=== PATIENT | male | born 1940 | race Caucasian/White ===

== ENCOUNTER → 2016-07-30 | Outpatient (CLI) | payer OTHER, MEDICARE ==
[~2016-07-30] MED LIST: ACCUNEB0.63 MG/3 INH; ALBUTEROL2.5 MG/3 M INH; ALDACTONE25 MG PO; ALLOPURINOL 10100 M1 PO; ALLOPURINOL 30300 M2 PO; ASPIRIN EC81 M1 PO; ATENOLOL 25 MG25 M1 PO; ATENOLOL 50MG T50 M1 PO; AVELOX 400 MG400 MG; AVELOX 400 MG400 MG PO; AZOR 10-40 MG1 EACH PO; B12INJ IJ; BENICAR 5 MG5 M1 PO; BENICAR20 MG PO; BENICAR40 MG PO; BYSTOLIC 5 MG5 M1 PO; BYSTOLIC10 MG PO; CARDIZEM CD180 MG PO; CARTIA XT120 M1 PO; CIPROFLOXACIN500 M3 PO; COLACE100 MG PO; COREG3.125 MG PO; COREG6.25 MG PO; COUMADIN 1MG TAB1 M1 PO; COUMADIN 2.5MG2.5 M1; COUMADIN 2.5MG2.5 M1 PO; COUMADIN 5 MG TA5 M1 PO; CRESTOR20 MG PO; CRESTOR40 MG PO; DIABETA 5MG TABL5 MG PO; DIFLUCAN; FAMCICLOVIR500 MG PO; FAMVIR125 MG PO; FLOMAX PO; FOLIC ACID1 MG PO; FUROSEMIDE 40 M40 M1 PO; GLUCOSE 40% GEL15 GM; GLUCOSE4 GM PO; GLUCOTROL XL2.5 MG PO; GLYBURIDE 5 MG T5 M1 PO; GLYCOLAX POWDER17 G1 PO; HYDROCODON-ACE1 EAC8 PO; KEFLEX250 MG PO; LANOXIN 0.120.125 M1 PO; LASIX 40 MG TAB40 M1 PO; MAG-OX 400 TAB400 M1 PO; MEDROLDOSEPACK PO; MEGESTROL40 MG/1 M1 PO; MUCINEX600 MG PO; MULTIVITAMINS; NORCO 5-325 TA1 EACH PO; NOVOLOG100 UNIT/1; NOVOLOG100 UNIT/1 SC; NYSTATIN 1100000 U/M PO; PACERONE 200 M200 M1 PO; PLAVIX 75 MG TA75 MG PO; POTASSIUM20 PO; PREDNISONE 10 M10 M1 PO; PREPARATION H O30 GM; PRILOSEC 20 MG20 MG PO; PROBIOTIC1 EAC1 PO; PROTONIX 20 MG20 M1 PO; PROTONIX40 M2 PO; ROBITUSSIN CF PO; TAMSULOSIN HCL0.4 MG PO; VANCOMYCIN100 MG/ML PO; VENTOLIN HFA 1818 GM; VICODIN 5-5001 EACH PO; VITAMIN B-12100 MC1; VOLTAREN GEL 1100 G2 TOP; XOPENEX0.63 MG/3
== END ==
LOC: RAD 10:16
DX: N18.9 Chronic kidney disease, unspecified (principal); R06.00 Dyspnea, unspecified; I42.9 Cardiomyopathy, unspecified

== ENCOUNTER → 2016-08-01 | Outpatient (CLI) | payer OTHER, MEDICARE | LOC: CAT 10:43 | DX: J84.10 Pulmonary fibrosis, unspecified (principal); J47.9 Bronchiectasis, uncomplicated; J90 Pleural effusion, not elsewhere classified; R59.0 Localized enlarged lymph nodes ==

== ENCOUNTER → 2016-09-06 | Outpatient (CLI) | payer OTHER, MEDICARE | LOC: RAD 08:45 | DX: J47.9 Bronchiectasis, uncomplicated (principal); J90 Pleural effusion, not elsewhere classified ==

== ENCOUNTER → 2016-09-12 | Outpatient (CLI) | payer OTHER, MEDICARE | LOC: RAD 11:48 | DX: R06.02 Shortness of breath (principal) ==

== ENCOUNTER 2016-10-08 12:20 | Inpatient (IN) | payer OTHER, MEDICARE ==
[~2016-10-08] VITALS: Ht 182.9 cm; Wt 72.4 kg
--- NOTE | ~2016-10-08 | H ---
[facility] [place] [address] HISTORY AND PHYSICAL Name: JEREMY GABRIEL Rehana Room #: 212-P ADM IN .R.#: [id number] Admission: 10/08/16 Attend Phys: Isiah Kilgore MD, Discharge: Date of : 38 Report #: [id number] THIS REPORT FOR: //name// CC: Fabrizio Kilgore DATE OF SERVICE: 10/08/2016 HISTORY OF PRESENT ILLNESS: The patient is a 75-year-old male well known to myself who was admitted today for some rectal bleeding, an INR of greater than 12 and some progressive heart failure, shortness of breath and dyspnea. Small bilateral pleural effusions are noted. He is becoming more progressively short of breath, though he is chronically short of breath. This is acute on chronic systolic failure in addition to coagulation issue due to INR elevation and warfarin. He was fairly well compensated when I last saw him 3 months ago. He is on warfarin, baby aspirin, albuterol, Aldactone 25 b.i.d., ____, and Lasix 40. His laboratory work reveals sodium of 134, potassium of 4.9, BUN of 50, and creatinine of 2.7. Liver function tests were normal. Albumin was 3.6. Troponin is 0.05, proBNP is 23,000, and INR is 12.5. His H and H are 14 and 44, the white count is 12,000 and platelets 193. PAST MEDICAL HISTORY: Positive for ischemic cardiomyopathy, coronary artery disease, bypass, bare metal stents to SVG to the RCA, last cath in 2007, nuclear tests negative in the last year. 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 SOCIAL HISTORY: He is . No current alcohol or tobacco. He is retired. No illicit drugs. He was never a smoker. Moderate caffeine. ALLERGIES: PENICILLIN and RAVEN INHIBITORS. REVIEW OF SYSTEMS: Essentially negative except for the progressive dyspnea, shortness of breath, and some small amount of rectal bleeding. PHYSICAL EXAMINATION: GENERAL: He is mildly dyspneic, but in no distress. He is alert and oriented. VITAL SIGNS: Blood pressure 116/60 and pulse is 70s. HEENT: Eyes reveal xanthelasmas. Pharynx is clear. NECK: Shows slight diminished upstrokes with JVD mildly noted. LUNGS: Clear with bibasilar crackles, prolonged expiratory phase, diminished in the bases. CARDIAC: Regular rate and rhythm. S1, S2. There is a holosystolic murmur. ABDOMEN: Soft. No HSM or abdominal bruit. EXTREMITIES: Reveal trace to 1+ edema. Distal pulses diminished, but intact. [facility] [address] [place] [address] HISTORY AND PHYSICAL Name: JEREMY GABRIEL Rehana Room #: 212-P [facility] IN M.R.#: [id number] Admission: 10/08/16 Attend Phys: Isiah Kilgore MD, Discharge: Date of : 38 Report #: [id number] NEUROLOGIC: Nonfocal. SKIN: Warm and dry without xanthoma or ulcer. MUSCULOSKELETAL: Generalized arthritic changes, slow gait. ASSESSMENT: 1. Acute systolic failure on chronic. 2. Moderately severe ischemic cardiomyopathy. 3. Bleeding secondary to elevated INR, iatrogenic secondary warfarin usage. 4. Atrial fibrillation flutter. 5. Sick sinus syndrome with permanent pacemaker. 6. Coronary artery disease with prior coronary artery bypass grafting. 7. Sleep apnea. 8. History of carotid stent. RECOMMENDATIONS AND PLAN: Vitamin K. Liver function tests appear to be appropriate. I am not clear as to what interacted here with his INR. We will monitor his H and H, repeat the INR in the morning and may need additional vitamin K. We will give 10 p.o. of Lasix bolus and drip has been initiated. There is moderate volume overload, particularly noted with a BNP of 24,000. Pulmonary toilet is needed. We will restart Aldactone, holding aspirin, warfarin, and albuterol. We will follow. By: 2316 Isiah Kilgore MD, [facility] /nt
[2016-10-08 14:01] LABS: HEMATOCRIT 44.5 % (42.0-52.0); HEMOGLOBIN 14.6 gm/dL (14.0-18.0); MCH 31.7 pg (26.0-34.0); MCHC 32.8 g/dL (28.0-37.0); MCV 96.7 fL (80.0-100.0); RBC 4.6 mil/uL (4.50-6.00); RDW 15.8 % (10.5-14.5); WBC 12.2 thou/uL (4.0-11.0)
[2016-10-08 14:34] VITALS: BP 137/69
[2016-10-08 14:42] LABS: PROTIME 130.2 Seconds (9.3-11.4)
[2016-10-08 14:45] LABS: ALBUMIN 3.6 g/dL (3.4-5.0); CALCIUM 9.9 mg/dL (8.5-10.1); CREATININE 2.7 mg/dL (0.7-1.3); POTASSIUM 4.9 mmol/L (3.5-5.1); TOTAL BILIRUBIN 0.7 mg/dL (<0.1-1.0); TOTAL PROTEIN 8.1 g/dL (6.4-8.2); TROPONIN-I 0.05 ng/mL (<0.04-0.07)
[2016-10-08 14:49] LABS: INR 12.5
[2016-10-08] MEDS ORDERED: LOPERAMIDE 2 MG2 M1 PO (14:53)
[2016-10-08 16:54] VITALS: BP 105/68
[2016-10-08 19:57] VITALS: BP 116/58
[2016-10-08 23:16] VITALS: BP 95/62
[2016-10-09 03:31] VITALS: BP 112/63
[2016-10-09 04:38] LABS: PROTIME 29.5 Seconds (9.3-11.4)
[2016-10-09 04:41] LABS: INR 2.8
[2016-10-09 07:28] LABS: CALCIUM 9.4 mg/dL (8.5-10.1); CREATININE 2.6 mg/dL (0.7-1.3); POTASSIUM 4.5 mmol/L (3.5-5.1)
[2016-10-09 08:34] VITALS: BP 125/64
[2016-10-09 12:04] VITALS: BP 116/79
[2016-10-09 15:45] VITALS: BP 116/79
[2016-10-09 19:43] VITALS: BP 122/73
[2016-10-10 03:39] LABS: INR 1.4; PROTIME 14.1 Seconds (9.3-11.4)
[2016-10-10 03:41] LABS: CALCIUM 9.1 mg/dL (8.5-10.1); CREATININE 2.8 mg/dL (0.7-1.3); POTASSIUM 4.1 mmol/L (3.5-5.1)
[2016-10-10 04:01] LABS: HEMATOCRIT 41.5 % (42.0-52.0); HEMOGLOBIN 13.7 gm/dL (14.0-18.0); MCH 31.6 pg (26.0-34.0); MCV 95.8 fL (80.0-100.0); RBC 4.34 mil/uL (4.50-6.00); RDW 15.5 % (10.5-14.5); WBC 10.2 thou/uL (4.0-11.0)
[2016-10-10 07:30] VITALS: BP 118/73
[2016-10-10 12:16] VITALS: BP 96/58
[2016-10-10 17:33] VITALS: BP 132/72
[2016-10-10 19:23] VITALS: BP 116/65
[2016-10-11 03:24] LABS: CALCIUM 9.1 mg/dL (8.5-10.1)
[2016-10-11 03:40] VITALS: BP 107/70
[2016-10-11] MEDS ORDERED: DEMADEX20 MG PO (07:14)
[2016-10-11 08:00] VITALS: BP 121/74
[2016-10-11 08:37] LABS: INR 1.2; PROTIME 12.5 Seconds (9.3-11.4)
[2016-10-11 12:00] VITALS: BP 115/75
[2016-10-11 13:58] VITALS: BP 115/75
== END 2016-10-11 15:10 | disposition home or self-care (01) | DRG 377 ==
LOC: 2N 12:20
PROVIDERS: Internal Medicine Cardiovascular Disease; Nurse Practitioner Adult Health
DX: K62.5 Hemorrhage of anus and rectum (principal); I50.23 Acute on chronic systolic (congestive) heart failure; N17.9 Acute kidney failure, unspecified; I48.92 Unspecified atrial flutter; E44.0 Moderate protein-calorie malnutrition; I25.5 Ischemic cardiomyopathy; I25.10 Atherosclerotic heart disease of native coronary artery without angina pectoris; G47.30 Sleep apnea, unspecified; I48.91 Unspecified atrial fibrillation; I49.5 Sick sinus syndrome; N18.9 Chronic kidney disease, unspecified; T45.515A Adverse effect of anticoagulants, initial encounter; E11.22 Type 2 diabetes mellitus with diabetic chronic kidney disease; Z68.21 Body mass index [BMI] 21.0-21.9, adult; Z79.01 Long term (current) use of anticoagulants; Z79.82 Long term (current) use of aspirin; Z79.899 Other long term (current) drug therapy; Z95.1 Presence of aortocoronary bypass graft; Z95.5 Presence of coronary angioplasty implant and graft; Z85.72 Personal history of non-Hodgkin lymphomas; Z95.0 Presence of cardiac pacemaker; Z92.21 Personal history of antineoplastic chemotherapy; Z92.3 Personal history of irradiation; Z88.0 Allergy status to penicillin; Z88.8 Allergy status to other drugs, medicaments and biological substances; Y92.89 Other specified places as the place of occurrence of the external cause
CPT/HCPCS: 10797

== ENCOUNTER 2016-11-27 13:14 | Inpatient (IN) | payer OTHER, MEDICARE ==
[~2016-11-27] VITALS: Ht 182.9 cm; Wt 64.6 kg
--- NOTE | ~2016-11-27 | HC ---
[facility] [place] [address] CONSULTATION Name: JEREMY GABRIEL Rehana Room #: 218-P [facility] IN M.R.#: [id number] Admission: 11/27/16 Attend Phys: Isiah Kilgore MD, Discharge: 12/01/16 Date of : 38 Report #: [id number] THIS REPORT FOR: //name// CC: Fabrizio Kilgore DATE OF SERVICE: 11/27/2016 ATTENDING PHYSICIAN: Isiah Kilgore MD. REASON FOR CONSULTATION: Elevated creatinine. HISTORY OF PRESENT ILLNESS: The patient is quite well known to us, followed in the office with CKD stage IV with typical serum creatinine running between 2 and 2.5, now has a creatinine of 2.8. He has chronic progressive shortness of breath, attempts at outpatient increased diuresis have failed to improve him symptomatically, he has had no swelling, watches his salt carefully and shortness of breath has persisted. He has a low left ventricular ejection fraction of 25%, but also high pulmonary artery pressures of 55-60%. PAST MEDICAL HISTORY: The patient has known decreased left ventricular ejection fraction as mentioned above, ischemic coronary artery disease. He has had bypass and bare-metal stents in the past. Also, history of lymphoma treated with chemotherapy 6 years ago, sleep apnea and uses BiPAP at night, a history of diabetes with minor amount of proteinuria, chronic atrial fibrillation with a pacemaker, fifi ablation and defibrillator, I believe. He also has carotid artery disease with left carotid stent by history as well his reports. SOCIAL HISTORY: No cigarettes, no alcohol, lives home with his , use of low-salt diet. REVIEW OF SYSTEMS: GENERAL: He has been feeling poorly. EYES: His vision has gotten worse. He has cataracts. ENT: Hearing okay. He swallows somewhat poorly. When he eats, his reports particularly with drinking liquids that he has aspiration with coughing, his is a nurse. He has left vocal cord paralysis by history as well. ENDOCRINE: He has got the diabetes. RESPIRATORY: Easily shortness of breath with some cough, nonproductive, no hemoptysis. No pleuritic pain. CARDIAC: No swelling in the legs, no chest pain, angina. He has a pacemaker. GASTROINTESTINAL: Very poor appetite, occasional nausea, no vomiting, hematemesis, occasional diarrhea. No bloody stool. GENITOURINARY: Good urinary stream without hematuria. No history of renal stones. NEUROLOGIC: Denies seizure, syncope, stroke or evidence of neuropathy. [facility] [address] [place] [address] CONSULTATION Name: JEREMY GABRIEL Room #: 218-P [facility]#: [id number] Admission: 11/27/16 Attend Phys: Isiah Kilgore MD, Discharge: 12/01/16 Date of : 38 Report #: [id number] MUSCULOSKELETAL: Denies arthritis. ALLERGIES: Reportedly to RAVEN INHIBITORS WITH COUGHING AND TO PENICILLINS. HOME MEDICATIONS: Include aspirin 81 mg daily, Flomax 0.4 mg daily, Coumadin, allopurinol 100 mg daily, spironolactone 25 mg daily, torsemide 40 mg daily and inhalers. FAMILY HISTORY: Positive for cancer and hypertension. PHYSICAL EXAMINATION: GENERAL: This is a chronically ill-appearing, thin, somewhat cachectic elderly gentleman. He is not short of breath at rest. SKIN: Shows some tenting. SKELETAL: Well developed, well nourished, nonobese. HEENT: Extraocular movements are full. Vision grossly intact. No scleral icterus. Hearing intact. Mucous membranes slightly dry. NECK: Veins are flat. CHEST: Shows some rhonchi at the bases, particularly on the left. HEART: Regular. ABDOMEN: Soft and nontender. Liver edge cannot be felt below the right costal margin. EXTREMITIES: Show no peripheral edema. NEUROLOGIC: Grossly intact. LABORATORY DATA: Hemoglobin is 14, platelets 179. Sodium 140, potassium 4.2, chloride 102, bicarbonate 27, creatinine 2.8, BUN 43. ASSESSMENT: 1. Elevated creatinine. He has chronic kidney disease this is multifactorial. He may have slight amount of underlying diabetic nephropathy. He has had some minor amount of proteinuria, this certainly is a large component of cardiorenal disease here with decreased renal perfusion and both right and left-sided heart failure are evident in this patient. I believe if anything he is more on the dry side than the wet side as far as I can tell and shortness of breath may be unrelated to fluid overload. 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 Some of the shortness of breath could be due to a pulmonary lymphadenopathy as well as pleural effusion. The adenopathy may be related to his former or recurrent lymphoma, certainly difficult to tell. He did have a CT of the chest done, which did suggest some adenopathy about a month ago. He also has the pleural effusion and that certainly could be playing a role. He also has atelectasis and may well be aspirating as well and these all could be contributing to his shortness of breath. 2. Ischemic cardiomyopathy with decreased left ventricular ejection fraction. 3. Pulmonary hypertension. [facility] [address] [place] [address] CONSULTATION Name: JEREMY GABRIEL Room #: 218-P DIS IN M.R.#: [id number] Admission: 11/27/16 Attend Phys: Isiah Kilgore MD, Discharge: 12/01/16 Date of : 38 Report #: [id number] 4. History of lymphoma. 5. Left vocal cord paralysis. <ELECTRONICALLY SIGNED> By: Isiah Florez MD 12/04/16 1153 1807 2024 Isiah Florez MD /nt
--- NOTE | ~2016-11-27 | CNG ---
[facility] [place] [address] CYTO-NONGYN REPORT PROCEDURE Name: PAWEL CUEVA Room #: 218-P DIS IN M.R.#: [id number] Admission: 11/27/16 Date of : 38 Discharge: 12/01/16 Report #: [id number] Path Case #: [id number] CYTOPATHOLOGY REPORT COLLECTION DATE: 11/30/2016 RECEIVED DATE: 12/03/2016 SUBMITTING PHYS: Dr. Ning Qureshi OTHER PHYS: Dr. Isiah Allred CLINICAL HISTORY: CHF. SPECIMEN(S) RECEIVED: A.Pleural fluid * * * * * * * * * * * * FINAL DIAGNOSIS: A. Pleural fluid: - No malignant cells identified. Rare mesothelial cells along with acute and chronic inflammatory cells present in a background of debris. PATHOLOGIST: Terra Maharaj M.D. REPORT ELECTRONICALLY SIGNED BY: Terra Maharaj M.D. DATE/TIME: 12/04/2016 14:35 * * * * * * * * * * * * GROSS PATHOLOGY: A. Pleural fluid: The specimen is submitted unfixed, labeled "Pawel Cueva". Received by the Cytology Department is 15 mL of clear yellow fluid. One ThinPrep slide and a formalin fixed cell block were prepared. (clt 12.03.2016) KOSHER BUTCHER(S): SHIRA Michele([facility]) INITIAL CPT CODE(S): A; 48819, 67365 Professional services performed by [facility] at [facility] [address], [place] [address] Technical services performed by [facility] at [address] [place] [address]., [address], [place] [address]. [facility] [address] [place] [address], [address] [facility] [address] [place] [address] CYTO-NONGYN REPORT PROCEDURE Name: PAWEL CUEVA Room #: 218-P DIS IN M.R.#: [id number] Admission: 11/27/16 Date of : 38 Discharge: 12/01/16 Report #: [id number] Path Case #: [id number] [place] [address] PHONE: [phone] DIRECTOR: Romaine Dill M.D. * * * END OF REPORT * * *
--- NOTE | ~2016-11-27 | EKG ---
[address] [place] [address] ELECTROCARDIOGRAM REPORT Name: JEREMY GABRIEL Room #: 218-P ADM IN M.R.#: [id number] Admission: 11/27/16 Attend Phys: Isiah Kilgore MD, Discharge: Date of : 38 Report #: [id number] THIS REPORT FOR: //name// [facility] Test Date: 2016-11-29 Test Time: 08:30:08 Pat Name: JEREMY GABRIEL Department: Room: 218 P Gender: M Dry Color Mixer: GR : 1940 Requested By: Isiah Kilgore Order Number: [id number] MD: Dallin Lennon Measurements Intervals [place] Rate: 82 P: ID: QRS: 0 QRSD: 158 T: 27 QT: 476 QTc: 556 Interpretive Statements Afib/flutter and ventricular-paced rhythm No further analysis attempted due to paced rhythm Compared to ECG 11/28/2016 06:58:44 No significant changes Electronically Signed On 11-29-2016 9:09:46 CDT by Dallin Lennon [email or web address] <ELECTRONICALLY SIGNED> By: Dallin Lennon MD, [facility] 11/29/16908 9 9 Dallin Lennon MD, [facility] /EPI
--- NOTE | ~2016-11-27 | 2DMMODE ---
[facility] [place] [address] 2 D/M-MODE ECHOCARDIOGRAM Name: JEREMY GABRIEL Room #: 218-P [facility] IN ..#: [id number] Admission: 11/27/16 Attend Phys: Isiah Kilgore, Discharge: Date of : 38 Date of Service: 11/27/16 1620 Report #: [id number] THIS REPORT FOR: //name// APPROVED REPORT Study performed: 11/27/2016 14:01:07 EXAM: Comprehensive 2D, Doppler, and color-flow Echocardiogram Patient Location: Bedside Room #: 218 Status: routine BSA: 1.90 HR: 76 bpm Rhythm: Pacemaker Other Information Study Quality: Adequate Indications Short of breath. Ischemic cardiomyopathy. Hx: Pacemaker/defibrillator, CABG 2D Dimensions LVEF(%): 19.88 (>50%) IVSd: 8.49 (7-11mm) LVOT Diam: 19.86 (18-24mm) LVDd: 58.84 mm PWd: 7.52 (7-11mm) Ascending Ao: 32.42 (22-36mm) LVDs: 53.44 (25-40mm) Aortic Root: 26.95 mm Carroll's LVEF: 19.88 % Volumes Left Atrial Volume (Systole) Single Plane 4CH: 71.42 mL Single Plane 2CH: 80.58 mL LA ESV Index: 43.00 mL/m2 Aortic Valve AoV Peak Aleksander.: 1.57 m/s AO Peak Gr.: 8.35 mmHg LVOT Max P.13 mmHg AO Mean Gr.: 6.12 mmHg AO V2 Mean: 1.21 m/s LVOT Max V: 0.73 m/s AO V2 VTI: 27.42 cm SONI Vmax: 1.44 cm2 [facility] [place] [address] 2 D/M-MODE ECHOCARDIOGRAM Name: JEREMY GABRIEL Room #: 218-P [facility] IN .R.#: [id number] Admission: 11/27/16 Attend Phys: Isiah Kilgore, Discharge: Date of : 38 Date of Service: 11/27/16 1620 Report #: [id number] Mitral Valve MV Decel. Time: 126.82 ms MV E Max Aleksander.: 1.02 m/s Pulmonary Valve PV Peak Aleksander.: 0.66 m/s PV Peak Gr.: 1.72 mmHg Pulmonary Vein P Vein S: 0.28 m/s P Vein D: 0.97 m/s P Vein S/D Ratio: 0.29 Tricuspid Valve TR Peak Aleksander.: 3.47 m/s RAP Estimate: 10.00 mmHg TR Peak Gr.: 48.05 mmHg PA Pressure: 58.00 mmHg Left Ventricle Left ventricle is mildly dilated. There is normal left ventricular wall thickness. Left ventricular systolic function is severely decreased. LVEF is 25-30%. This study is not technically sufficient to allow evaluation of the LV diastolic function. Right Ventricle The right ventricle is normal size. Right ventricle is hypokinetic. Device lead is present in the right ventricle. Atria Left atrium is moderately dilated. Right atrium is mildly dilated. Aortic Valve Aortic valve is moderately thickened, calcified, trileaflet Trace aortic regurgitation. Mild aortic stenosis. Mitral Valve Mitral annular calcification Moderate mitral regurgitation. Tricuspid Valve The tricuspid valve is normal in structure. There is moderate tricuspid regurgitation. The right atrial pressure is estimated at 10 mmHg. There is moderate pulmonary hypertension with an estimated PAP of 55-60mmHg. Pulmonic Valve [address] [address] 2 D/M-MODE ECHOCARDIOGRAM Name: JEREMY GABRIEL Room #: 218-P [facility] IN ..#: [id number] Admission: 11/27/16 Attend Phys: Isiah Kilgore, Discharge: Date of : 38 Date of Service: 11/27/16 1620 Report #: [id number] The pulmonary valve is normal in structure. Trace pulmonic regurgitation. Great Vessels The aortic root is normal in size. The ascending aorta is normal in size. IVC is normal in size and collapses <50% with inspiration. Pericardium There is no pericardial effusion. Left and right pleural effusions noted. <Conclusion> Left ventricular systolic function is severely decreased. LVEF is 25-30%. Left atrium is moderately dilated. Aortic valve is moderately thickened, calcified, trileaflet Mild aortic stenosis, trace insufficiency. Mitral annular calcification. Moderate mitral regurgitation. Pulmonary artery pressure of 55-60mmHg There is no pericardial effusion. ICD/pacing wires in right heart <ELECTRONICALLY SIGNED> By: Dallin Lennon MD, FACC 11/27/161619 19 19 Dallin Lennon MD, FACC /INF
--- NOTE | ~2016-11-27 | EKG ---
[place] [address] [place] [address] ELECTROCARDIOGRAM REPORT Name: JEREMY GABRIEL Room #: 218-P ADM IN M.R.#: [id number] Admission: 11/27/16 Attend Phys: Isiah Kilgore MD, Discharge: Date of : 38 Report #: [id number] THIS REPORT FOR: //name// [facility] Test Date: 2016-11-28 Test Time: 06:58:44 Pat Name: JEREMY GABRIEL Department: Room: 218 P Gender: M Pulp Press Tender: alicia : 1940 Requested By: Danita Wang Order Number: [id number] MD: Dallin Lennon Measurements Intervals [place] Rate: 70 P: VA: QRS: 205 QRSD: 156 T: 35 QT: 468 QTc: 506 Interpretive Statements Afib/flut and V-paced complexes No further analysis attempted due to paced rhythm Compared to ECG 09/21/2015 19:01:17 Ventricular pacing is more frequent Electronically Signed On 11-28-2016 8:02:09 CDT by Dallin Lennon [email or web address] <ELECTRONICALLY SIGNED> By: Dallin Lennon MD, [facility] 11/28/16 0802 0658 0658 Dallin Lennon MD, [facility] /EPI
[~2016-11-27 13:14] MED LIST changes: +DEMADEX20 MG PO; +LOPERAMIDE 2 MG2 M1 PO
[2016-11-27 15:02] LABS: MCH 31.5 pg (26.0-34.0); MCHC 31.9 g/dL (28.0-37.0); MCV 98.7 fL (80.0-100.0); PLATELET COUNT 179 thou/uL (150-400); RBC 4.45 mil/uL (4.50-6.00); RDW 16.2 % (10.5-14.5); WBC 9.9 thou/uL (4.0-11.0)
[2016-11-27 15:04] LABS: MANUAL DIFF YES
[2016-11-27 15:15] LABS: INR 2.9; PROTIME 29.2 Seconds (9.3-11.4)
[2016-11-27 15:23] LABS: ABSOLUTE NEUTROPHILS 8.7 thou/uL (1.4-8.2); PLATELET ESTIMATE NORMAL; TOTAL CELL COUNT 100
[2016-11-27 15:40] LABS: ALBUMIN 3.6 g/dL (3.4-5.0); CALCIUM 9.8 mg/dL (8.5-10.1); CREATININE 2.8 mg/dL (0.7-1.3); POTASSIUM 4.2 mmol/L (3.5-5.1); TOTAL BILIRUBIN 1.1 mg/dL (<0.1-1.0); TOTAL PROTEIN 7.8 g/dL (6.4-8.2)
[2016-11-27 16:07] VITALS: BP 120/70
[2016-11-27 19:24] VITALS: BP 126/77
[2016-11-27] MEDS ORDERED: COUMADIN 2 MG TA2 M1 PO (21:12)
[2016-11-27 23:36] VITALS: BP 128/74
[2016-11-28 03:34] VITALS: BP 112/80
[2016-11-28 07:21] VITALS: BP 115/69
[2016-11-28 10:40] LABS: INR 2.6; PROTIME 25.9 Seconds (9.3-11.4)
[2016-11-28 10:41] LABS: CALCIUM 9.6 mg/dL (8.5-10.1); CREATININE 2.6 mg/dL (0.7-1.3); POTASSIUM 3.7 mmol/L (3.5-5.1)
[2016-11-28 11:16] VITALS: BP 117/71
[2016-11-28 15:05] VITALS: BP 112/59
[2016-11-28 20:30] VITALS: BP 109/62
[2016-11-29 03:29] VITALS: BP 92/53
[2016-11-29 03:45] LABS: INR 2.6; PROTIME 25.9 Seconds (9.3-11.4)
[2016-11-29 03:47] LABS: ALBUMIN 3.2 g/dL (3.4-5.0); CALCIUM 9.6 mg/dL (8.5-10.1); CREATININE 2.6 mg/dL (0.7-1.3); PHOSPHORUS 3.8 mg/dL (2.5-4.9); POTASSIUM 3.7 mmol/L (3.5-5.1)
[2016-11-29 08:25] VITALS: BP 123/69
[2016-11-29 13:26] LABS: INR 2.5; PROTIME 25.3 Seconds (9.3-11.4)
[2016-11-29 16:52] VITALS: BP 109/60
[2016-11-29 19:08] VITALS: BP 116/72
[2016-11-30 04:21] LABS: INR 1.7; PROTIME 17.1 Seconds (9.3-11.4)
[2016-11-30 04:25] LABS: CALCIUM 9.4 mg/dL (8.5-10.1); CREATININE 2.5 mg/dL (0.7-1.3); POTASSIUM 3.6 mmol/L (3.5-5.1)
[2016-11-30 04:36] VITALS: BP 119/72
[2016-11-30 08:00] VITALS: BP 113/69
[2016-11-30 12:00] VITALS: BP 121/72
[2016-11-30 16:00] VITALS: BP 131/56
[2016-11-30 16:37] LABS: BF NUCLEATED CELLS 158; BF RBC 431; COLOR YELLOW; TOTAL VOLUME 62 mL
[2016-11-30 16:38] LABS: CLARITY CLEAR; MANUAL DIFF YES
[2016-11-30 19:31] LABS: BF NEUTROPHILS 16
[2016-11-30 19:45] VITALS: BP 118/82
[2016-11-30 23:07] LABS: BODY FLUID ALBUMIN 1.2 g/dL (()); BODY FLUID AMYLASE 22 U/L (()); BODY FLUID GLUCOSE 167 mg/dL (()); BODY FLUID LDH 51 IU/L (()); BODY FLUID PROTEIN 1.7 g/dL (())
[2016-12-01 00:30] VITALS: BP 98/62
[2016-12-01 03:06] LABS: INR 1.3; PROTIME 13.2 Seconds (9.3-11.4)
[2016-12-01 03:26] LABS: CALCIUM 9.1 mg/dL (8.5-10.1); CREATININE 2.5 mg/dL (0.7-1.3); POTASSIUM 3.4 mmol/L (3.5-5.1)
[2016-12-01 04:45] VITALS: BP 104/59
[2016-12-01 07:05] VITALS: BP 112/74
[2016-12-01] MEDS ORDERED: CARVEDILOL3.125 MG PO (08:21)
[2016-12-01 09:02] VITALS: BP 112/74
== END 2016-12-01 09:43 | disposition home or self-care (01) | DRG 291 ==
LOC: 2N 13:14
PROVIDERS: Internal Medicine Cardiovascular Disease; Internal Medicine Pulmonary Disease; Nurse Practitioner Adult Health; Nurse Practitioner Gerontology
PROC: 0W993ZZ Drainage of Right Pleural Cavity, Percutaneous Approach (ICD-10-PCS; principal; 2016-11-30)
DX: I13.0 Hypertensive heart and chronic kidney disease with heart failure and stage 1 through stage 4 chronic kidney disease, or unspecified chronic kidney disease (principal); I50.23 Acute on chronic systolic (congestive) heart failure; N17.9 Acute kidney failure, unspecified; J90 Pleural effusion, not elsewhere classified; I48.92 Unspecified atrial flutter; N18.4 Chronic kidney disease, stage 4 (severe); I48.2 Chronic atrial fibrillation; I25.5 Ischemic cardiomyopathy; I27.2 Other secondary pulmonary hypertension; J38.01 Paralysis of vocal cords and larynx, unilateral; J47.9 Bronchiectasis, uncomplicated; R13.10 Dysphagia, unspecified; K22.8 Other specified diseases of esophagus; I49.5 Sick sinus syndrome; E11.22 Type 2 diabetes mellitus with diabetic chronic kidney disease; K57.30 Diverticulosis of large intestine without perforation or abscess without bleeding; M10.9 Gout, unspecified; E78.5 Hyperlipidemia, unspecified; G47.33 Obstructive sleep apnea (adult) (pediatric); Z95.1 Presence of aortocoronary bypass graft; Z95.5 Presence of coronary angioplasty implant and graft; Z95.0 Presence of cardiac pacemaker; Z88.0 Allergy status to penicillin; Z88.8 Allergy status to other drugs, medicaments and biological substances; Z82.49 Family history of ischemic heart disease and other diseases of the circulatory system; Z85.72 Personal history of non-Hodgkin lymphomas; Z90.49 Acquired absence of other specified parts of digestive tract; Z80.0 Family history of malignant neoplasm of digestive organs
CPT/HCPCS: 10081

== ENCOUNTER → 2016-12-11 | Outpatient (CLI) | payer OTHER, MEDICARE ==
[~2016-12-11] MED LIST changes: +CARVEDILOL3.125 MG PO; +COUMADIN 2 MG TA2 M1 PO
== END ==
LOC: RAD 11:55
DX: I51.7 Cardiomegaly (principal); Z48.810 Encounter for surgical aftercare following surgery on the sense organs

== ENCOUNTER → 2016-12-31 | Outpatient (CLI) | payer OTHER, MEDICARE ==
[~2016-12-31] MED LIST changes: +COUMADIN 4 MG TA4 M1 PO
== END ==
LOC: CAT 09:41
DX: H93.8X2 Other specified disorders of left ear (principal)

== ENCOUNTER → 2017-01-02 | Outpatient (CLI) | payer OTHER, MEDICARE ==
[~2017-01-02] VITALS: Ht 180.3 cm; Wt 68.5 kg
--- NOTE | ~2017-01-02 | P ---
[facility] [place] [address] PROCEDURE REPORT Name: NERYJEREMY Rehana Room #: REG [facility]#: [id number] Admission: 01/02/17 Attend Phys: Brayden Moreira Discharge: Date of : 38 Report #: [id number] THIS REPORT FOR: //name// CC: MICHAEL Allred DATE OF SERVICE: 01/02/2017 PROCEDURE PERFORMED: Upper endoscopy with esophageal dilation. HISTORY OF PRESENT ILLNESS: The patient is a 76-year-old male with dysphagia, cough, intermittent nausea and vomiting who underwent an upper GI last month for dysphagia. At that time, he did not have an upper endoscopy or dilation due to him being on Coumadin, he is now held his Coumadin for the last 5 days, INR was 1.5. Upper GI at that time showed a markedly dilated esophagus. Plan is for EGD with dilation today. PROCEDURE: The risks and benefits of the procedure were explained to the patient, those risks including, but not limited to bleeding, perforation, and the risk of sedation. He understood these risks and gave informed consent. Sedation was given using propofol per anesthesia. Next, using a standard [employer] upper endoscope, the scope was placed in the patient's mouth and advanced under direct vision through the esophagus, stomach and into the second portion of the duodenum. The upper and mid esophagus was dilated significantly. There was no food or impaction noted. At the GE junction, there was a mild Schatzki's ring. Overall, the gastric mucosa was normal. The pylorus was normal and patent. The duodenal bulb, first and second portion were all normal. The scope was then brought back up into the patient's stomach and a Savary guidewire was inserted through the scope, leaving the guidewire in place as the scope was then withdrawn. Next, a 51-Bolivian Savary dilation of the esophagus was then performed without difficulty. The wire and dilator were removed. The scope was reintroduced into the patient's stomach. There was no evidence of mucosal tear after dilation. The scope was then withdrawn and the procedure terminated. The patient tolerated the procedure well. IMPRESSION: 1. Significantly dilated upper and mid esophagus, this may be a sign of achalasia. 2. Mild Schatzki's ring, status post esophageal dilation. RECOMMENDATIONS: Observe the patient post-procedure. If the patient has continued dysphagia, we would recommend an esophageal manometry to rule out the possibility of achalasia. Thank you for allowing me to participate in his care. [address] [address] PROCEDURE REPORT Name: NERYJEREMY Room #: REG [facility]#: [id number] Admission: 01/02/17 Attend Phys: Brayden Moreira Discharge: Date of : 36 Report #: [id number] ADDENDUM The patient began desatting after the procedure, then became pulse less. A code blue was called. The code was ran for over 40 minute. Family members are present and notified throughout this time. At one point, pulse and blood pressure was regained; however, the patient coded again during this period. Eventually after working on the patient for approximately 40 minutes, it was decided by the family to stop further CPR and the patient . Family members are present. By: 1125 1452 Brayden Buckley MD /nt
[2017-01-02 10:18] LABS: INR 1.5; PROTIME 15.4 Seconds (9.3-11.4)
[2017-01-02 12:16] LABS: ABG SAMPLE TYPE ARTERIAL; BE(vivo) -9.2 mmol/L (-2 to +3); HCO3 14.5 mmol/L (22.0-26.0); O2(CT) 19.9 mL/dL (15.0-23.0); PCO2 26.2 mmHg (35.0-45.0); PO2 471.4 mmHg (80.0-100.0); pH 7.362 (7.360-7.450); sO2 99.9 % (92.0-98.0); tCO2 15.3 mmol/L (24.0-30.0)
[2017-01-02 12:18] LABS: LACTATE 7.88 mmol/L (0.5-2.0); STICK SITE LINE; TIDAL VOLUME 846 ml
[2017-01-02 12:21] LABS: HEMATOCRIT 39.9 % (42.0-52.0); HEMOGLOBIN 12.9 gm/dL (14.0-18.0); MCH 32.6 pg (26.0-34.0); MCHC 32.4 g/dL (28.0-37.0); MCV 100.3 fL (80.0-100.0); RBC 3.98 mil/uL (4.50-6.00); RDW 16.5 % (10.5-14.5); WBC 7.4 thou/uL (4.0-11.0)
[2017-01-02 12:33] LABS: CALCIUM 7.4 mg/dL (8.5-10.1); CREATININE 2.3 mg/dL (0.7-1.3); POTASSIUM 3.8 mmol/L (3.5-5.1)
[2017-01-02 12:35] LABS: ALBUMIN 2.5 g/dL (3.4-5.0); TOTAL BILIRUBIN 0.8 mg/dL (<0.1-1.0)
[2017-01-02 12:58] LABS: ABG SAMPLE TYPE ARTERIAL; BE(vivo) -11.1 mmol/L (-2 to +3); HCO3 16.7 mmol/L (22.0-26.0); O2(CT) 19.7 mL/dL (15.0-23.0); O2Hb 97.3 % (92.0-98.0); PCO2 44.3 mmHg (35.0-45.0); sO2 98.3 % (92.0-98.0); tCO2 18.1 mmol/L (24.0-30.0)
[2017-01-02 12:59] LABS: ABG COMMENT CODE BLUE; LACTATE 7.27 mmol/L (0.5-2.0); STICK SITE ART LINE; pH 7.194 (7.360-7.450)
== END | disposition home or self-care (01) ==
LOC: EDSTATUS 08:11 → GI 08:57
PROVIDERS: Specialist
DX: K22.2 Esophageal obstruction (principal); E11.22 Type 2 diabetes mellitus with diabetic chronic kidney disease; I13.0 Hypertensive heart and chronic kidney disease with heart failure and stage 1 through stage 4 chronic kidney disease, or unspecified chronic kidney disease; N18.2 Chronic kidney disease, stage 2 (mild); I50.9 Heart failure, unspecified; I48.92 Unspecified atrial flutter; I48.2 Chronic atrial fibrillation; N40.0 Benign prostatic hyperplasia without lower urinary tract symptoms; G47.33 Obstructive sleep apnea (adult) (pediatric); M10.9 Gout, unspecified; Z95.1 Presence of aortocoronary bypass graft; Z95.5 Presence of coronary angioplasty implant and graft; Z90.49 Acquired absence of other specified parts of digestive tract; Z79.01 Long term (current) use of anticoagulants; Z85.72 Personal history of non-Hodgkin lymphomas; Z95.810 Presence of automatic (implantable) cardiac defibrillator; Z98.890 Other specified postprocedural states; Z79.899 Other long term (current) drug therapy; Z88.0 Allergy status to penicillin; Z88.8 Allergy status to other drugs, medicaments and biological substances; Z79.82 Long term (current) use of aspirin
CPT/HCPCS: 62110; 62900